=== PATIENT | female | born 1980 | race Two or more races ===

== ENCOUNTER 2025-08-05 14:02 | Emergency (ER) | payer BC ==
[~2025-08-05] VITALS: Ht 170.2 cm; Wt 77.1 kg
[2025-08-05 14:15] VITALS: BP 132/105; TEMP 98.3
[2025-08-05] MEDS ORDERED: CLIN40CR9 VG (14:51)
[2025-08-05 15:05] VITALS: O2SAT 99
== END 2025-08-05 15:06 | disposition home or self-care (01) ==
LOC: ER 14:09
DX: N76.0 Acute vaginitis (principal); B96.89 Other specified bacterial agents as the cause of diseases classified elsewhere